=== PATIENT | male | born 1975 | race Two or more races ===

== ENCOUNTER 2024-02-22 23:27 | Emergency (ER) | payer MEDICAID, SELFPAY ==
[2024-02-22 23:28] VITALS: BMI 26.6
[2024-02-23 00:15] VITALS: BP 128/72; PULSE 61; RESP 24; TEMP 36.7; O2SAT 95
--- NOTE | 2024-02-23 00:28 | XR_ITS ---
Examination: Abdomen sonogram, Limited Date and time of exam: February 23, 2024 0228 hrs. Indications: Epigastric pain beginning one week ago Technique: Real-time wills scale transabdominal sonographic images of the upper abdomen obtained. Findings: Multiple gallstones, the largest 2.2 cm Gallbladder wall 0.5 cm with edema Common bile duct 0.3 cm Pancreas obscured by bowel gas Liver 14.5 cm no liver lesions Normal hepatopedal portal venous flow Patent IVC Impression: Acute calculus cholecystitis
--- NOTE | 2024-02-23 00:29 | PD.EDRME ---
Rapid Medical Screening Exam RME Arrival date/time: 02/22/24 23:27 48-year-old male past medical history of gallstone presents emergency department complaining of epigastric pain with nausea. Chief Complaint: Abdominal Pain Time Seen by Provider: 02/23/24 00:23 Vital signs: Vital Signs Temperature 98.0 F 02/23/24 00:15 Pulse Rate 61 02/23/24 00:15 Respiratory Rate 24 H 02/23/24 00:15 Blood Pressure 128/72 02/23/24 00:15 Pulse Oximetry (%) 95 02/23/24 00:15 Oxygen Delivery Method Room Air 02/23/24 00:15 Vital signs reviewed by provider: Yes
[2024-02-23] MEDS: KETOROLAC INJ 60 MG/2 ML VIAL 30 MG IM (00:53)
[2024-02-23 01:01] LABS: Basophils % (Auto) 0 % (0-2.5); Eosinophils # (Auto) 0.3 Thou/mm3 (0.0-0.5); Eosinophils % (Auto) 4 % (0-10); Hematocrit 40.1 % (41.0-53.0); Hemoglobin 13.6 g/dL (13.5-16.0); Immature Granulocytes % (Auto) 0 % (0-0); Immature Granulocytes Auto 0.01 Thou/mm3 (0.00-0.00); Lymphocytes # (Auto) 2.6 Thou/mm3 (1.0-4.8); Lymphocytes % (Auto) 32 % (10-50); Mean Corpuscular HGB Conc 33.9 g/dl (31.0-37.0); Mean Corpuscular Hemoglobin 30.8 pg (25.0-35.0); Mean Corpuscular Volume 91 fL (80-100); Monocytes # (Auto) 0.9 Thou/mm3 (0.0-0.8); Monocytes % (Auto) 12 % (0-12); Neutrophils # (Auto) 4.1 Thou/mm3 (1.8-7.7); Neutrophils % (Auto) 51 % (37-80); Nucleated Red Blood Cell % 0 /100 WBC (0); Platelet Count 207 Thou/mm3 (140-440); RDW Standard Deviation 43.8 fL (35.1-43.9); Red Blood Count 4.41 Miln/mm3 (4.50-5.90); White Blood Count 7.9 Thou/mm3 (3.8-10.6)
[2024-02-23] MEDS: ONDANSETRON ODT 4 MG TABRAP PO (01:18)
[2024-02-23 02:06] LABS: Alanine Aminotransferase 21 U/L (10-49); Albumin, Serum 4.5 gm/dL (3.5-5.0); Albumin/Globulin Ratio 1.6 (1.2-2.2); Alkaline Phosphatase 80 U/L (46-116); Anion Gap 10 (7-16); Aspartate Amino Transferase 28 U/L (0-34); BUN/Creatinine Ratio 17 Ratio (12-20); Bilirubin,Total 0.4 mg/dL (0.3-1.2); Blood Urea Nitrogen 19 mg/dL (9-23); Calcium 9.8 mg/dL (8.3-10.6); Calcium (Corrected) 9.8 mg/dL (8.5-10.1); Chloride 105 mMol/L (98-107); Creatinine (Component) 1.1 mg/dL (0.6-1.3); Estimated Creatinine Clearance 70.7 mL/min (>60); Globulin 2.9 gm/dL (2.3-3.5); Glucose 103 mg/dL (74-106); Lipase 39 U/L (12-53); Osmolality,Calculated 285 (275-295); Potassium 4.1 mMol/L (3.4-5.1); Sodium 142 mMol/L (136-145); Total Protein 7.4 gm/dL (5.7-8.2); eGFR > 60 See Note
[2024-02-23 03:02] LABS: Collection Type, Urine Clean Catch
[2024-02-23 03:09] LABS: Bilirubin,Urine Negative (Negative); Blood,Urine Negative (Negative); Clarity,Urine Clear (Clear/Hazy); Color,Urine Yellow (Lt Yel-Yel); Culture Indicated,Urine Not Indicated; Glucose, Urine Negative (Negative); Ketones,Urine Negative (Negative); Leukocyte Esterase,Urine Negative (Negative); Nitrite,Urine Negative (Negative); Protein,Urine Trace (Neg - Trace); RBC,Urine 2 /hpf (0-3); Specific Gravity,Urine 1.031 (1.001-1.035); Squamous Epithelial Cell,Urine < 1 /hpf (0-5); Urobilinogen,Urine Negative mg/dL (0.0-1.0); WBC,Urine 1 /hpf (0-5)
[2024-02-23 03:24] LABS: Amphetamine/Methamp Scrn,U Negative (Negative); Barbiturate Screen,Urine Negative (Negative); Benzodiazepines Screen,Urine Negative (Negative); Benzoylecgonine Screen, Ur Negative (Negative); Fentanyl Screen,Urine Negative (Negative); Opiate Screen,Urine Negative (Negative); THC Screen,Urine Negative (Negative)
--- NOTE | 2024-02-23 05:10 | PRELIM_ITS ---
Right upper quadrant abdominal ultrasound. February 23, 2024 0248 hours Clinical history: Epigastric pain history of gallstones Technique: Grayscale and color flow images of the right upper quadrant are provided. Hepatic and portal veins were also imaged with color flow images. Comparison: Reference is made to the prior preliminary report dated November 20, 2022Findings:The liver demonstrates heterog eneous echotexture. No intrahepatic biliary ductal dilatation. The main portal vein is patent and dem onstrates hepatopetal flow. The gallbladder is distended. Echogenic shadowing foci are seen within th e gallbladder measuring 2.2 cm. The gallbladder wall is thickened and edematous measuring 5.8 mm. No pericholecystic fluid is demonstrated. Sonographic Mcdonald sign is negative as per the technologist's note. Please correlate with any pain medication. The common bile duct is normal in caliber at 2.6 mm. The pancreas is obscured by overlying bowel gas and not visualized. The inferior vena cava is unrema rkable to the extent visualized. Impression:Findings suggestive of acute calculous cholecystitis. Rec ommend clinical correlation. Fatty infiltration of the liver. Report Electronically Signed By: Al Peña 02/23/2024 5:10:29 AM [EST]
--- NOTE | 2024-02-23 05:44 | EDNOTE_ITS ---
<Statement entered by Dee Funes MD - 02/23/24 19:45> As co-signing physician, I was present and available for consult prn. I concur with the plan and care as documented by the midlevel provider. ED Abdominal Pain RME/HPI General Chief Complaint: Abdominal Pain Stated complaint: GALLSTONES ATTACK/ NAUSEA Time seen by provider: 02/23/24 00:23 Arrival date/time: 02/22/24 23:27 48-year-old male past medical history of gallstone presents emergency department complaining of epigastric pain with nausea. Source: patient Mode of arrival: ambulatory Limitations: no limitations RME / HPI RME / HPI narrative: 02/22/24 23:27 48-year-old male past medical history of gallstone presents emergency department complaining of epigastric pain with nausea. Related Data Previous Rx's ?Medication ?Instructions ?Recorded ibuprofen 600 mg tablet 600 mg PO Q8H PRN fever or pain 08/20/23 #30 tabs hydrocodone 5 mg-acetaminophen 325 1 tab PO Q6H PRN pain (scale score 11/20/23 mg tablet 7-10) #20 tabs acetaminophen 300 mg-codeine 30 mg 2 tab PO TID PRN pain #20 tabs 12/22/23 tablet meloxicam 7.5 mg tablet 7.5 mg PO QDAY #10 tabs 12/25/23 hydrocodone 5 mg-acetaminophen 325 1 tab PO BID PRN pain #10 tabs 02/23/24 mg tablet ondansetron 4 mg disintegrating 4 mg PO Q8H PRN nausea and 02/23/24 tablet vomiting #10 tabs Allergies Allergy/AdvReac Type Severity Reaction Status Date / Time No Known Allergies Allergy Verified 01/06/24 00:14 Review of Systems Review of Systems Systems Reviewed: All systems reviewed, normal except as documented Constitutional Constitutional: Reports system reviewed and no additional complaints, except as documented, Denies body ache(s), Denies chills and Denies fever(s) Eyes Eyes: Reports system reviewed and no additional complaints, except as documented and Denies change in vision ENT Ears, Nose, Mouth, and Throat: Reports system reviewed and no additional complaints, except as documented, Denies disequilibrium, Denies dizziness, Denies sore throat and Denies vertigo Cardiovascular Cardiovascular: Reports system reviewed and no additional complaints, except as documented, Denies chest pain and Denies dyspnea Respiratory Respiratory: Reports system reviewed and no additional complaints, except as documented, Denies chest congestion, Denies cough and Denies dyspnea Gastrointestinal Gastrointestinal: Reports system reviewed and no additional complaints, except as documented, Reports abdominal pain, Reports nausea and Reports vomiting Musculoskeletal Musculoskeletal: Reports system reviewed and no additional complaints, except as documented, Denies abnormal gait and Denies arthralgias Integumentary/Breasts Skin/Breast: Reports system reviewed and no additional complaints, except as documented, Denies erythema, Denies rash and Denies wounds Neurologic Neurologic: Reports system reviewed and no additional complaints, except as documented, Denies abnormal gait, Denies disequilibrium, Denies dizziness and Denies vertigo Past Medical History Past Medical History NEUROLOGIC: Negative Neurological Disorders or Seizures CARDIAC: Negative Cardiac Disorders or Congestive Heart Failure RESPIRATORY: Negative Chronic Obstructive Pulmonary Disease (COPD) or Asthma GASTROINTESTINAL: Positive Gastrointestinal Disorders and Gall Bladder Disease GENITOURINARY: Positive Inguinal Hernia; Negative Renal Disease MUSCULOSKELETAL: Negative Musculoskeletal Disorders ENDOCRINE: Negative Endocrine Disorders, Diabetes Mellitus Type 1 or Diabetes Mellitus Type 2 HEMATOLOGIC: Negative Blood Disorders or Sickle Cell Disease OTHER HISTORY: Positive Measles; Negative Hospitalization, Autoimmune Disease, Shingles, Blood Transfusions, Blood Transfusion Reaction, Anesthesia Reactions or Cancer Family History FAMILY HISTORY: Positive Family Cardiac Disorders, Family Cancer and Family Surgery; Negative Family Psychiatric Problems, Family Respiratory Disorders, Family Gastrointestinal Problems or Family Anesthesia Reaction Social History SMOKING STATUS: Current some day smoker SUBSTANCE USE: marijuana (smokes marijuana sometimes ) and methamphetamine (last used two years ago. ) ED Exam General Limitations: Present no limitations General appearance: Present alert and in no apparent distress Head Head exam: Present atraumatic Eye Eye exam: Present normal appearance, PERRL and EOMI ENT ENT exam: Present normal exam, normal oropharynx and mucous membranes moist Neck Neck exam: Present normal inspection, full ROM and trachea midline Chest Chest inspection: Present normal inspection and symmetric chest wall rise Respiratory Respiratory exam: Present normal lung sounds bilaterally Cardiovascular Cardiovascular exam: Present regular rate, normal rhythm and normal heart sounds Abdominal Exam Abdominal exam: Present soft and normal bowel sounds; Absent Mcdonald's sign Extremities Exam Extremities exam: Present normal inspection and full ROM Back Exam Back exam: Present normal inspection and full ROM Neurological Exam Neurological exam: Present alert, oriented X3 and CN II-XII intact Psychiatric Psychiatric exam: Present normal affect and normal mood Skin Skin exam: Present warm, dry, intact and normal color Course Quality Measures none Orders Category Date Time Status US gall bladder Stat Exams 02/23/24 00:28 Taken CBC Stat Lab 02/23/24 00:48 Completed CMP [Comprehensive Metabolic Panel] Stat Lab 02/23/24 00:48 Completed Drug Screen,Urine Stat Lab 02/23/24 02:45 Completed Lipase Stat Lab 02/23/24 00:48 Completed Urinalysis, C/S if Indicated Stat Lab 02/23/24 02:45 Completed Ketorolac Inj [Toradol Inj] Med 02/23/24 00:28 Discontinued 30 mg IM X1 ONE Ondansetron Odt [Zofran Odt] Med 02/23/24 00:56 Discontinued 4 mg PO X1 ONE Vital Signs Vital signs: Vital Signs Temperature 98.0 F 02/23/24 00:15 Pulse Rate 61 02/23/24 00:15 Respiratory Rate 24 H 02/23/24 00:15 Blood Pressure 128/72 02/23/24 00:15 Pulse Oximetry (%) 95 02/23/24 00:15 Oxygen Delivery Method Room Air 02/23/24 00:15 95% room air within normal limits Abdominal Pain MDM MDM Narrative MDM Narrative:: 48-year-old male past medical history of gallstone presents emergency department complaining of epigastric pain with nausea. Patient's abdomen is soft and nontender. CBC was unremarkable for any leukocytosis. CMP was unremarkable for any elevated LFTs or gross electrolyte abnormalities. Ultrasound findings acute calculus cholecystitis. Patient appears nontoxic and hemodynamically stable. Patient reported improvement in pain with pain medication. Dr Rodrigues consulted . Rod patient is stable for discharge and follow-up in his office. Patient discharged with pain medication instructed to follow-up with Dr Rodrigues in his office and return to the emergency department for any worsening symptoms or as needed Patient data External records reviewed:: [facility] previous records Clinical information provided by:: patient Social determinants that could affect healthcare access:: none Patient has the following chronic illnesses:: See chart How is presenting disease/condition affected by chronic disease/condition?: exacerbated by Evaluation data The following diagnostics were reviewed and interpreted by me:: lab results and radiology exam(s) Lab and/or radiology exams considered but not ordered:: Ordered Interpretation Summary: Interpreted by me Medications / Prescriptions Medications or Prescriptions considered but not ordered:: Ordered Medication administrations:: Medication Administration History Discontinued Medications Ketorolac Tromethamine (Ketorolac Inj 60 Mg/2 Ml Vial) 30 mg IM X1 ONE Stop: 02/23/24 00:29 Last Admin: 02/23/24 00:53 Dose: 30 mg Documented By: Ondansetron HCl (Ondansetron Odt 4 Mg Tabrap) 4 mg PO X1 ONE; Protocol Stop: 02/23/24 00:57 Last Admin: 02/23/24 01:18 Dose: 4 mg Documented By: OA Given Consultations Consultation(s) initiated? (list below): Yes Consultation #1 (Physician, Specialty, Details): Dr Rodrigues Diagnosis Differential diagnosis abdominal pain: abdominal pain, acute appendicitis, calculus of kidney, constipation, diverticulitis, gastroenteritis, pancreatitis and small bowel obstruction Most likely diagnosis given after review of the tests above:: Calculus cholecystitis Admission Indicated Admission indicated?: not indicated Admission Request Was there a request for admission?: No Disposition Plan Disposition Plan: Discharge Discharge Attestation Discharge Attestation: The patient and all family members were given an opportunity to ask questions and understood the discharge instructions. Discharge instructions specifically effects, indications for sooner follow up or return to the emergency department, and the expected course of current diagnosis. Patient condition: Stable Discharge Plan Plan Patient Disposition: HOME (Self Care) Disposition Comment: Stable Prescriptions/Referrals Prescriptions/Med Rec: New hydrocodone-acetaminophen 5-325 mg tablet 1 tab PO BID MDD 2 tabs PRN (Reason: pain) Qty: 10 0RF ondansetron 4 mg tablet,disintegrating 4 mg PO Q8H PRN (Reason: nausea and vomiting) Qty: 10 0RF No Action hydrocodone-acetaminophen 5-325 mg tablet 1 tab PO Q6H MDD 4 PRN (Reason: pain (scale score 7-10)) Qty: 20 0RF meloxicam 7.5 mg tablet 7.5 mg PO QDAY Qty: 10 0RF ibuprofen 600 mg tablet 600 mg PO Q8H PRN (Reason: fever or pain) Qty: 30 0RF acetaminophen-codeine 300-30 mg tablet 2 tab PO TID MDD 6 PRN (Reason: pain) Qty: 20 0RF Referrals: Misha Steinberg MD [Primary Care Provider] - In 1 week Jakob Rodrigues MD [Physician] - In 1 week Problem List Clinical Impression: Calculus of gallbladder with cholecystitis Patient/Caregiver Discharge Instructions Discharge Activity: activity as tolerated Education Materials: Treating Gallstones, ED Cholecystitis, Confirmed, ED Cholecystitis, Presumed Additional Instructions: Take pain medication as prescribed. Follow-up with Dr Rodrigues in his office in 24 to 48 hours. Return to the emergency department for any worsening symptoms or as needed. Print Language: Serbian Stand Alone Forms: Evelin Award Info., Patient Portal Info Letter PA/FILTRATION OPERATOR Supervising Physician PA/FILTRATION OPERATOR Supervising Physician: Dr. Funes
[2024-02-23 06:00] VITALS: BP 122/78; PULSE 76; RESP 18; TEMP 37; O2SAT 98
== END 2024-02-23 06:01 | disposition home or self-care (01) ==
PROVIDERS: Emergency Provider Emergency Medicine; PCP Family Medicine
DX: K80.10 Calculus of gallbladder with chronic cholecystitis without obstruction (principal)
CPT/HCPCS: 36415; 76705; 80053; 80307; 81001; 83690; 85025; 96372; 99284; J1885; Q0162

== ENCOUNTER 2024-03-19 19:38 | Emergency (ER) | payer MEDICAID, SELFPAY ==
[2024-03-19 20:02] VITALS: PULSE 95; RESP 18; O2SAT 99; BMI 28.1
[2024-03-19 20:26] VITALS: BP 118/74; PULSE 100; RESP 20; TEMP 36.7; O2SAT 100
--- NOTE | 2024-03-19 20:29 | EKG_ITS ---
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
--- NOTE | 2024-03-19 20:29 | EDRME_ITS ---
Rapid Medical Screening Exam [facility] Arrival date/time: 03/19/24 19:38 Chief Complaint: Abdominal Pain Time Seen by Provider: 03/19/24 19:48 Vital signs: Vital Signs Temperature 98.1 F 03/19/24 20:26 Pulse Rate 100 03/19/24 20:26 Respiratory Rate 20 03/19/24 20:26 Blood Pressure 118/74 03/19/24 20:26 Pulse Oximetry (%) 100 03/19/24 20:26 Oxygen Delivery Method Room Air 03/19/24 20:26 [facility] Narrative: Reports epigastric pain, coffee-ground emesis and black stools x 2 days. History of ulcers, sees Dr. Rodrigues
[2024-03-19 21:10] LABS: Alanine Aminotransferase 37 U/L (10-49); Albumin, Serum 4.7 gm/dL (3.5-5.0); Albumin/Globulin Ratio 1.4 (1.2-2.2); Alkaline Phosphatase 91 U/L (46-116); Anion Gap 6 (7-16); Aspartate Amino Transferase 38 U/L (0-34); BUN/Creatinine Ratio 19 Ratio (12-20); Bilirubin,Total 0.5 mg/dL (0.3-1.2); Blood Urea Nitrogen 19 mg/dL (9-23); Calcium 9.8 mg/dL (8.3-10.6); Calcium (Corrected) 9.8 mg/dL (8.5-10.1); Carbon Dioxide 28.3 mMol/L (20.0-31.0); Chloride 103 mMol/L (98-107); Estimated Creatinine Clearance 94.3 mL/min (>60); Globulin 3.3 gm/dL (2.3-3.5); Glucose 126 mg/dL (74-106); Lipase 30 U/L (12-53); Osmolality,Calculated 278 (275-295); Potassium 4.1 mMol/L (3.4-5.1); Sodium 137 mMol/L (136-145); Troponin I < 0.020 ng/mL (0.0-0.045); eGFR > 60 See Note
[2024-03-19 21:21] LABS: Collection Type, Urine Clean Catch; Squamous Epithelial Cell,Urine 0 /hpf (0-5)
[2024-03-19 21:25] LABS: Basophils % (Auto) 0 % (0-2.5); Eosinophils # (Auto) 0.2 Thou/mm3 (0.0-0.5); Eosinophils % (Auto) 2 % (0-10); Hemoglobin 14.7 g/dL (13.5-16.0); Immature Granulocytes % (Auto) 0 % (0-0); Immature Granulocytes Auto 0.03 Thou/mm3 (0.00-0.00); Lymphocytes % (Auto) 11 % (10-50); Mean Corpuscular Hemoglobin 30.6 pg (25.0-35.0); Mean Corpuscular Volume 88 fL (80-100); Monocytes % (Auto) 11 % (0-12); Neutrophils # (Auto) 6.6 Thou/mm3 (1.8-7.7); Neutrophils % (Auto) 75 % (37-80); Nucleated Red Blood Cell % 0 /100 WBC (0); Platelet Count 256 Thou/mm3 (140-440); RDW Standard Deviation 41.3 fL (35.1-43.9); White Blood Count 8.8 Thou/mm3 (3.8-10.6)
[2024-03-19 21:36] LABS: Partial Thromboplastin Time 25.4 Seconds (22.0-36.0); Prothrombin Time 11.2 Seconds (9.0-12.2)
[2024-03-19 21:48] LABS: Bacteria,Urine Rare; Bilirubin,Urine Negative (Negative); Blood,Urine Negative (Negative); Clarity,Urine Clear (Clear/Hazy); Color,Urine Yellow (Lt Yel-Yel); Glucose, Urine Negative (Negative); Ketones,Urine 2+ (Negative); Leukocyte Esterase,Urine Negative (Negative); Nitrite,Urine Negative (Negative); Protein,Urine 1+ (Neg - Trace); RBC,Urine 10 /hpf (0-3); Specific Gravity,Urine 1.034 (1.001-1.035); Urobilinogen,Urine Negative mg/dL (0.0-1.0); WBC,Urine 5 /hpf (0-5)
[2024-03-19 21:51] LABS: Sperm,Urine Present
--- NOTE | 2024-03-19 22:07 | PC.NURSE ---
Pt came into ER via EMS. Pt. A/O x 4. Pt. is being seen by GI specialist and is, at this point stable on vitals. Female came into ER looking for pt. and was upset bc pt was no in Main ER. I explained that they would call him back shortly and was called back at that moment. When pt. was brought back to the [facility], woman got upset again. Pt. who was on his WC got off and laid down on floor. 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 CN at [facility] explaining to woman that pt. was stable at this time and that we were waiting on results and/or bed. Woman states that they will be leaving. Pt. leaves AMA w/o signing paperwork.
== END 2024-03-19 22:13 | disposition left against medical advice (07) ==
LOC: SERX 20:49
PROVIDERS: Physician Assistant; Emergency Provider Emergency Medicine; PCP Family Medicine
DX: R10.13 Epigastric pain (principal); R11.10 Vomiting, unspecified; R00.0 Tachycardia, unspecified; R19.5 Other fecal abnormalities; Z53.29 Procedure and treatment not carried out because of patient's decision for other reasons
CPT/HCPCS: 36415; 80053; 81001; 83690; 84484; 85025; 85610; 85730; 86850; 86900; 86901; 93005; 99283

== ENCOUNTER 2024-03-22 18:20 | Emergency (ER) | payer MEDICAID, SELFPAY ==
[2024-03-22 18:20] VITALS: BMI 27.4
[2024-03-22 18:30] VITALS: BP 169/71; PULSE 76; RESP 20; TEMP 36.8; O2SAT 98
--- NOTE | 2024-03-22 18:42 | PD.EDRME ---
Rapid Medical Screening Exam RME Arrival date/time: 03/22/24 18:20 Chief Complaint: Abdominal Pain Time Seen by Provider: 03/22/24 18:36 Vital signs: Vital Signs Temperature 98.3 F 03/22/24 18:30 Pulse Rate 76 03/22/24 18:30 Respiratory Rate 20 03/22/24 18:30 Blood Pressure 169/71 H 03/22/24 18:30 Pulse Oximetry (%) 98 03/22/24 18:30 Oxygen Delivery Method Room Air 03/22/24 18:30 E Narrative: Epigastric pain and nausea/vomiting started this morning. History of gallstones.
[2024-03-22] MEDS: ONDANSETRON ODT 4 MG TABRAP PO (19:15)
[2024-03-22 19:16] LABS: Basophils % (Auto) 0 % (0-2.5); Eosinophils # (Auto) 0.3 Thou/mm3 (0.0-0.5); Eosinophils % (Auto) 3 % (0-10); Hematocrit 42.7 % (41.0-53.0); Hemoglobin 14.8 g/dL (13.5-16.0); Immature Granulocytes % (Auto) 0 % (0-0); Immature Granulocytes Auto 0.02 Thou/mm3 (0.00-0.00); Lymphocytes # (Auto) 1.8 Thou/mm3 (1.0-4.8); Lymphocytes % (Auto) 19 % (10-50); Mean Corpuscular HGB Conc 34.7 g/dl (31.0-37.0); Mean Corpuscular Hemoglobin 31.1 pg (25.0-35.0); Mean Corpuscular Volume 90 fL (80-100); Monocytes # (Auto) 0.8 Thou/mm3 (0.0-0.8); Monocytes % (Auto) 9 % (0-12); Neutrophils # (Auto) 6.3 Thou/mm3 (1.8-7.7); Neutrophils % (Auto) 68 % (37-80); Nucleated Red Blood Cell % 0 /100 WBC (0); Platelet Count 246 Thou/mm3 (140-440); RDW Standard Deviation 41.7 fL (35.1-43.9); Red Blood Count 4.76 Miln/mm3 (4.50-5.90); White Blood Count 9.3 Thou/mm3 (3.8-10.6)
[2024-03-22] MEDS: KETOROLAC INJ 60 MG/2 ML VIAL 30 MG IM (19:16)
[2024-03-22 19:37] LABS: Troponin I < 0.002 ng/mL (0.0-0.045)
[2024-03-22 19:39] LABS: Alanine Aminotransferase 20 U/L (10-49); Albumin, Serum 4.5 gm/dL (3.5-5.0); Albumin/Globulin Ratio 1.3 (1.2-2.2); Alkaline Phosphatase 84 U/L (46-116); Anion Gap 9 (7-16); Aspartate Amino Transferase 22 U/L (0-34); BUN/Creatinine Ratio 11 Ratio (12-20); Bilirubin,Total 0.3 mg/dL (0.3-1.2); Blood Urea Nitrogen 11 mg/dL (9-23); Calcium 9.8 mg/dL (8.3-10.6); Calcium (Corrected) 9.8 mg/dL (8.5-10.1); Carbon Dioxide 26.5 mMol/L (20.0-31.0); Chloride 103 mMol/L (98-107); Estimated Creatinine Clearance 81.6 mL/min (>60); Globulin 3.4 gm/dL (2.3-3.5); Glucose 102 mg/dL (74-106); Lipase 43 U/L (12-53); Osmolality,Calculated 275 (275-295); Potassium 4.4 mMol/L (3.4-5.1); Sodium 138 mMol/L (136-145); Total Protein 7.9 gm/dL (5.7-8.2); eGFR > 60 See Note
[2024-03-22 19:41] LABS: Collection Type, Urine Clean Catch; RBC,Urine 0 /hpf (0-3); Squamous Epithelial Cell,Urine 0 /hpf (0-5); WBC,Urine 0 /hpf (0-5)
[2024-03-22 19:54] LABS: Bilirubin,Urine Negative (Negative); Blood,Urine Negative (Negative); Clarity,Urine Clear (Clear/Hazy); Color,Urine Lt-Yellow (Lt Yel-Yel); Glucose, Urine Negative (Negative); Ketones,Urine Negative (Negative); Leukocyte Esterase,Urine Negative (Negative); Nitrite,Urine Negative (Negative); Protein,Urine Trace (Neg - Trace); Specific Gravity,Urine 1.028 (1.001-1.035); Urobilinogen,Urine Negative mg/dL (0.0-1.0)
--- NOTE | 2024-03-22 20:15 | PD.EDABDPN ---
ED Abdominal Pain RME/HPI General Chief Complaint: Abdominal Pain Stated complaint: ABD PAIN TODAY, HX GALL STONES Time seen by provider: 03/22/24 18:36 Arrival date/time: 03/22/24 18:20 RME / HPI RME / HPI narrative: 48-year-old male patient with significant history of gallstone in the past, came in for evaluation regarding flareup gallstone. Patient been having pain to the right upper quadrant pain for the last few hours. Described as sharp pain, severity moderate. Denies any vomiting denies any fever denies any other complaints. Related Data Previous Rx's ?Medication ?Instructions ?Recorded ibuprofen 600 mg tablet 600 mg PO Q8H PRN fever or pain 08/20/23 #30 tabs hydrocodone 5 mg-acetaminophen 325 1 tab PO Q6H PRN pain (scale score 11/20/23 mg tablet 7-10) #20 tabs acetaminophen 300 mg-codeine 30 mg 2 tab PO TID PRN pain #20 tabs 12/22/23 tablet meloxicam 7.5 mg tablet 7.5 mg PO QDAY #10 tabs 12/25/23 hydrocodone 5 mg-acetaminophen 325 1 tab PO BID PRN pain #10 tabs 02/23/24 mg tablet ondansetron 4 mg disintegrating 4 mg PO Q8H PRN nausea and 02/23/24 tablet vomiting #10 tabs dicyclomine 20 mg tablet 20 mg PO TID PRN abdominal pain 03/22/24 #30 tabs Allergies Allergy/AdvReac Type Severity Reaction Status Date / Time No Known Allergies Allergy Verified 03/22/24 18:22 Review of Systems Review of Systems Narrative Review of Systems: Review of system reviewed and within normal limits except mentioned in HPI ED Exam Narrative Physical exam: VITAL SIGNS: Reviewed. GENERAL APPEARANCE: Alert and interactive, follows commands, no acute distress, HEAD AND FACE: Non-traumatic. ENT: PERRL, pink conjunctivitis, eyelid no trauma, Mucous membrane moist. NECK: Supple, nontender, no nuchal rigidity. CHEST: No tenderness, no crepitus, no paradoxical movement, no retractions. LUNGS: Clear, well ventilated, symmetric, no rales, no wheezing, no ronchi, no stridor, good breath sounds bilaterally. HEART: Regular rate, regular rhythm, no murmur, no gallops. ABDOMEN: Soft, positive bowel sounds, nondistended, no guarding, right upper quadrant tenderness,, no rebound, no masses, RECTAL: Deferred. GENITAL: Deferred. NEUROLOGICAL: Gross motor function intact sensory function intact, Appropriate for age. MUSCULOSKELETAL: low back nontender, full range of motion. EXTREMITIES: Nontender, full range of motion. SKIN: Color pink, dry, no rash, no lacerations, no abrasions, no contusions. LYMPHATICS: Deferred. Course Quality Measures none Orders Category Date Time Status EKG (ED ONLY) *Do not use* NOW Care 03/22/24 18:43 Completed EKG (ED Only) Stat Exams 03/22/24 18:43 Ordered CBC Stat Lab 03/22/24 19:07 Completed CMP [Comprehensive Metabolic Panel] Stat Lab 03/22/24 19:07 Completed Lipase Stat Lab 03/22/24 19:07 Completed Troponin I Stat Lab 03/22/24 19:07 Completed UA [Urinalysis] Stat Lab 03/22/24 19:19 Completed Ketorolac Inj [Toradol Inj] Med 03/22/24 18:56 Discontinued 30 mg IM X1 ONE Ondansetron Odt [Zofran Odt] Med 03/22/24 18:56 Discontinued 4 mg PO X1 ONE Vital Signs Vital signs: Vital Signs Temperature 98.3 F 03/22/24 18:30 Pulse Rate 76 03/22/24 18:30 Respiratory Rate 20 03/22/24 18:30 Blood Pressure 169/71 H 03/22/24 18:30 Pulse Oximetry (%) 98 03/22/24 18:30 Oxygen Delivery Method Room Air 03/22/24 18:30 Abdominal Pain MDM MDM Narrative MDM Narrative:: 48-year-old male patient with significant history of gallstone in the past, came in for evaluation regarding flareup gallstone. Patient been having pain to the right upper quadrant pain for the last few hours. Described as sharp pain, severity moderate. Denies any vomiting denies any fever denies any other complaints. Laboratory workup all came back normal. LFTs are normal no leukocytosis. Prior to discharge patient told me that his pain is totally gone. Patient will see Dr. Rodrigues this coming Sunday. Patient data External records reviewed:: None Clinical information provided by:: patient and family Social determinants that could affect healthcare access:: none (None) Patient has the following chronic illnesses:: History of gallstone How is presenting disease/condition affected by chronic disease/condition?: exacerbated by Evaluation data The following diagnostics were reviewed and interpreted by me:: lab results Lab and/or radiology exams considered but not ordered:: None Interpretation Summary: Laboratory workup all came back normal. Medications / Prescriptions Medications or Prescriptions considered but not ordered:: None Medication administrations:: Medication Administration History Discontinued Medications Ketorolac Tromethamine (Ketorolac Inj 60 Mg/2 Ml Vial) 30 mg IM X1 ONE Stop: 03/22/24 18:57 Last Admin: 03/22/24 19:16 Dose: 30 mg Documented By: Ondansetron HCl (Ondansetron Odt 4 Mg Tabrap) 4 mg PO X1 ONE; Protocol Stop: 03/22/24 18:57 Last Admin: 03/22/24 19:15 Dose: 4 mg Documented By: Toradol and Zofran Consultations Consultation(s) initiated? (list below): No Diagnosis Differential diagnosis abdominal pain: abdominal pain and other (Gallstone, acute cholecystitis) Most likely diagnosis given after review of the tests above:: Biliary colic, gallstone Admission Indicated Admission indicated?: not indicated Explain why admission is indicated or not indicated:: Stable Admission Request Was there a request for admission?: No Disposition Plan Disposition Plan: Discharge Discharge Attestation Discharge Attestation: The patient and all family members were given an opportunity to ask questions and understood the discharge instructions. Discharge instructions specifically effects, indications for sooner follow up or return to the emergency department, and the expected course of current diagnosis. Patient condition: Stable Discharge Plan Plan Patient Disposition: HOME (Self Care) Prescriptions/Referrals Prescriptions/Med Rec: New dicyclomine 20 mg tablet 20 mg PO TID PRN (Reason: abdominal pain) Qty: 30 0RF No Action hydrocodone-acetaminophen 5-325 mg tablet 1 tab PO Q6H MDD 4 PRN (Reason: pain (scale score 7-10)) Qty: 20 0RF meloxicam 7.5 mg tablet 7.5 mg PO QDAY Qty: 10 0RF ibuprofen 600 mg tablet 600 mg PO Q8H PRN (Reason: fever or pain) Qty: 30 0RF acetaminophen-codeine 300-30 mg tablet 2 tab PO TID MDD 6 PRN (Reason: pain) Qty: 20 0RF hydrocodone-acetaminophen 5-325 mg tablet 1 tab PO BID MDD 2 tabs PRN (Reason: pain) Qty: 10 0RF ondansetron 4 mg tablet,disintegrating 4 mg PO Q8H PRN (Reason: nausea and vomiting) Qty: 10 0RF Referrals: Misha Steinberg MD [Primary Care Provider] - In 1 week Problem List Clinical Impression: Gallstone, Biliary colic Patient/Caregiver Discharge Instructions Discharge Activity: activity as tolerated Education Materials: ED Gallstones with Biliary Colic Additional Instructions: Thank you for the opportunity for serving you today. You are stable for discharged . You are advised to: Follow-up with your surgeon in 1 to 2 days Return to ED for worsening of symptoms Increase oral fluids Take medication as prescribed Please avoid eating fatty, greasy, fried foods. Avoid drinking milk.. Avoid eating meat. Print Language: Colombian Stand Alone Forms: Evelin Award Info., Patient Portal Info Letter
== END 2024-03-22 20:18 | disposition home or self-care (01) ==
PROVIDERS: Physician Assistant; Emergency Provider Emergency Medicine; PCP Family Medicine
DX: K80.70 Calculus of gallbladder and bile duct without cholecystitis without obstruction (principal)
CPT/HCPCS: 36415; 80053; 81001; 83690; 84484; 85025; 93005; 96372; 99283; J1885; Q0162

== ENCOUNTER 2024-04-08 10:10 | Day surgery (SDC) | payer MEDICAID, SELFPAY ==
[2024-04-04 12:13] VITALS: BMI 25.8
[2024-04-04 13:15] LABS: Basophils % (Auto) 1 % (0-2.5); Eosinophils # (Auto) 0.1 Thou/mm3 (0.0-0.5); Eosinophils % (Auto) 1 % (0-10); Hematocrit 42.2 % (41.0-53.0); Hemoglobin 14.7 g/dL (13.5-16.0); Immature Granulocytes % (Auto) 0 % (0-0); Immature Granulocytes Auto 0.01 Thou/mm3 (0.00-0.00); Lymphocytes # (Auto) 1.9 Thou/mm3 (1.0-4.8); Lymphocytes % (Auto) 24 % (10-50); Mean Corpuscular HGB Conc 34.8 g/dl (31.0-37.0); Mean Corpuscular Hemoglobin 31.1 pg (25.0-35.0); Mean Corpuscular Volume 89 fL (80-100); Monocytes # (Auto) 0.5 Thou/mm3 (0.0-0.8); Monocytes % (Auto) 7 % (0-12); Neutrophils # (Auto) 5.4 Thou/mm3 (1.8-7.7); Neutrophils % (Auto) 68 % (37-80); Nucleated Red Blood Cell % 0 /100 WBC (0); Platelet Count 298 Thou/mm3 (140-440); RDW Standard Deviation 43.8 fL (35.1-43.9); Red Blood Count 4.72 Miln/mm3 (4.50-5.90); White Blood Count 7.9 Thou/mm3 (3.8-10.6)
[2024-04-04 13:50] LABS: Alanine Aminotransferase 21 U/L (10-49); Albumin, Serum 4.7 gm/dL (3.5-5.0); Albumin/Globulin Ratio 1.7 (1.2-2.2); Alkaline Phosphatase 83 U/L (46-116); Anion Gap 9 (7-16); Aspartate Amino Transferase 25 U/L (0-34); BUN/Creatinine Ratio 18 Ratio (12-20); Bilirubin,Total 0.6 mg/dL (0.3-1.2); Blood Urea Nitrogen 18 mg/dL (9-23); Calcium 9.9 mg/dL (8.3-10.6); Calcium (Corrected) 9.9 mg/dL (8.5-10.1); Carbon Dioxide 25.4 mMol/L (20.0-31.0); Chloride 105 mMol/L (98-107); Estimated Creatinine Clearance 80.6 mL/min (>60); Globulin 2.7 gm/dL (2.3-3.5); Glucose 90 mg/dL (74-106); Osmolality,Calculated 279 (275-295); Potassium 4.6 mMol/L (3.4-5.1); Sodium 139 mMol/L (136-145); Total Protein 7.4 gm/dL (5.7-8.2); eGFR > 60 See Note
[2024-04-08] VITALS (8 sets, daily range): BP systolic 104–125; BP diastolic 68–79; PULSE 58–81; RESP 12–18; TEMP 36.5–36.9; O2SAT 97–100; BMI 24.2
--- NOTE | 2024-04-08 12:29 | PD.SUROPNT ---
Date of Procedure 04/08/24 Pre Op Diagnosis Symptomatic cholelithiasis Post Op Diagnosis Cholelithiasis with cholecystitis Procedure Laparoscopic cholecystectomy Findings Moderately distended gallbladder with large gallstone and chronic cholecystitis Procedure Description Patient was brought into the operating room in supine position. After administration of general endotracheal anesthesia abdomen was prepped and draped in standard surgical manner. A Veress needle was inserted through the umbilicus and pneumoperitoneum was obtained up to 15 mmHg. The Veress needle was then removed, a 5 mm infraumbilical incision was made and the 5mm trocar was inserted. Laparoscopic camera was placed. Under direct visualization a laparoscopic camera a 10 mm trocar was placed in subxiphoid and two 5 mm trocars placed in right upper quadrant. The gallbladder was identified and was noted to be moderately distended with a large gallstone and chronic cholecystitis. It was retracted cephalad and laterally. Dissection started near the infundibulum of gallbladder where cystic duct and gallbladder junction clearly identified. The cystic duct was circumferentially dissected off the peritoneum and surrounding inflammatory tissue. The critical view of safety was clearly demonstrated. Cystic duct was then divided between 2 endoclips proximally and one distally. The cystic artery was similarly dissected and divided. The gallbladder was then from the liver bed using electrocautery. The gallbladder was then placed inside an Endo Catch and removed from the abdomen utilizing subxiphoid trocar site. The area was copiously and thoroughly washed and irrigated, all the fluid was suctioned and the suction fluid returned clear. Hemostasis achieved using electrocautery. Endoclips noted be in place and intact without any bleeding or any leakage. Hemostasis was adequate and satisfactory. The subxiphoid trocar sites fascial defect was closed with 0 Vicryl. Instruments and trocars removed, pneumoperitoneum was evacuated and the incisions closed with 4-0 Monocryl in subcuticular fashion. Instrument needle and sponge counts were all reported to be correct X2. Patient tolerated the procedure well, was extubated, breathing spontaneously and without difficulty and was transferred to postanesthesia care in stable condition. Anesthesia GETA and local Pathology / specimen Other (Gallbladder and contents) Estimated Blood Loss 25 Condition Stable Disposition PACU Surgeon Jakob Rodrigues MD Surgical Staff Operation Date: 04/08/24 13:00 <No data on this case meets the specified criteria>
--- NOTE | 2024-04-08 12:40 | SUR.PHASEI ---
pt received from OR in recovery bay 8. pt obtunded, breathing unlabored on oxymask 4l, oral airway in place. v/s stable. pt dressing to abd dermabond x4 cdi. report received from Lubna Abreu and Kyrie EDMONDS.
--- NOTE | 2024-04-08 12:55 | SUR.PHASEI ---
report from David RN, pt resting comfortably in [facility], dressing to abdomen clean, dry, and intact, VS stable
--- NOTE | 2024-04-08 13:10 | SUR.PHASEI ---
pt tolerating ice chips without difficulty swallowing or nausea/vomiting
[2024-04-08] MEDS: fentaNYL CIT INJ 50 mCg/ML AMP 2ML IV (13:17)
--- NOTE | 2024-04-08 13:55 | SUR.PHASEII ---
pt awake and alert, breathing unlabored on room air. v/s stable. pt dressing to abd dermabond x4 cdi. pt able to ambulate to wheelchair with steady gait. d/c instructions given with daughter in room, all questions answered. pt d/c via wheelchair with all belongings.
== END 2024-04-08 13:55 | disposition home or self-care (01) ==
PROVIDERS: PCP Family Medicine; Referring Provider Surgery; Visit Provider Surgery
PROC: 0FT44ZZ Resection of Gallbladder, Percutaneous Endoscopic Approach (ICD-10-PCS; CPT 47562; principal; 2024-04-08 12:45)
DX: K80.10 Calculus of gallbladder with chronic cholecystitis without obstruction (principal)
CPT/HCPCS: 47562; 36415; 80053; 85025; A4217; A4649; J0131; J0694; J1100; J1885; J2405; J2704; J3010; J3490; J1805